=== PATIENT | male | born 1990 ===

== ENCOUNTER 2017-09-05 23:27 | Emergency (ER) | payer OTHER ==
[2017-09-06] MEDS ORDERED: Tetan/Diph/Pertus SYR(Tdap)* 0.5 ML SYR(BOOSTRIX) use SYR IM ONE (02:35)
[2017-09-06] MEDS ORDERED: Lidocaine 2% 10 ML* VIAL INJ ONE (03:09)
[2017-09-06] MEDS ORDERED: Lidocaine 2% PF * 5 ML VIAL ONE (03:15)
[2017-09-06] MEDS ORDERED: Cephalexin CAP* 500 MG PO ONE (05:00)
--- NOTE | 2017-09-06 05:08 | ED ---
Laceration/Wound HPI - HPI Summary HPI Summary: [facility] from [facility] with laceration to left side of jaw and neck, and right side cheek by unknown sharp object. Tetanus status unknown. Medical history is none. No anti-coag. Bleeding controlled - History of Current Complaint Stated Complaint: FACIAL LACS Time Seen by Provider: 09/06/17 01:48 Hx Obtained From: Patient Mechanism of Injury: Sharp/Blunt Trauma Pain Intensity: 0 - Allergy/Home Medications Allergies/Adverse Reactions: Allergies Allergy/AdvReac Type Severity Reaction Status Date / Time No Known Allergies Allergy Verified 09/05/17 23:35 PMH/Surg Hx/FS Hx/Imm Hx Infectious Disease History: No Infectious Disease History: Denies: Traveled Outside the [place] in Last 30 Days - Social History Alcohol Use: None Substance Use Type: Reports: None Smoking Status (MU): Never Smoked Tobacco Review of Systems Constitutional: Negative Eyes: Negative ENT: Negative Cardiovascular: Negative Respiratory: Negative Gastrointestinal: Negative Genitourinary: Negative Musculoskeletal: Negative Skin: Negative Neurological: Negative Psychological: Normal All Other Systems Reviewed And Are Negative: Yes Physical Exam - Summary Physical Exam Summary: Superficial laceration to left side jaw and neck. Facial laceration to right side cheek. Full range of motion of jaw. No intraoral trauma. Triage Information Reviewed: Yes Vital Signs On Initial Exam: Initial Vitals Temp Pulse Resp BP Pulse Ox 98.0 F 72 16 144/87 99 09/05/17 23:34 09/05/17 23:34 09/05/17 23:34 09/05/17 23:34 09/05/17 23:34 Vital Signs Reviewed: Yes Appearance: Positive: Well-Appearing Skin: Positive: Warm Head/Face: Positive: Normal Head/Face Inspection Eyes: Positive: Normal ENT: Positive: Normal ENT inspection Neck: Positive: Supple Respiratory/Lung Sounds: Positive: Clear to Auscultation Cardiovascular: Positive: Normal Abdomen Description: Positive: Nontender Musculoskeletal: Positive: Normal Neurological: Positive: Normal Psychiatric: Positive: Normal AVPU Assessment: Alert - [place] Coma Scale Best Eye Response: 4 - Spontaneous Best Motor Response: 6 - Obeys Commands Best Verbal Response: 5 - Oriented Coma Scale Total: 15 Procedures - Laceration/Wound Repair 1 Location: face Description: Linear Anesthesia: Local, 1.0% Length, Depth and Shape: 20cm x .5cm Betadine Prep?: Yes Irrigated w/ Saline (ccs): 40 - saline with Betadine Laceration/Wound Explored: clean Closure: Single Layer Debridement: minimal Suture Type: Prolene Number of Sutures: 31 - 6.o ethilon Layer Closure?: No Sterile Dressing Applied?: No 2 Location: face Description: Linear Anesthesia: Local, 2.0% Length, Depth and Shape: 9cm x .5cm Betadine Prep?: Yes Irrigated w/ Saline (ccs): 40 - saline with Betadine Laceration/Wound Explored: clean Closure: Single Layer Debridement: minimal Number of Sutures: 8 - 6. 0 Ethilon Layer Closure?: No Sterile Dressing Applied?: No Diagnostics - Vital Signs Vital Signs Temp Pulse Resp BP Pulse Ox 09/05/17 23:34 98.0 F 72 16 144/87 99 - Laboratory Lab Statement: Any lab studies that have been ordered have been reviewed, and results considered in the medical decision making process. Laceration Repair Course/Dx - Course Course Of Treatment: Lacerations. Tetanus updated. Started on Keflex 500 mg by mouth. Will be given prescription for Keflex 500mg po tid x 5 days. Sutures out in 5-7 days - Clinical Impression Provider Diagnoses: Face lacerations Discharge - Sign-Out/Discharge Documenting (check all that apply): Discharge/Admit/Transfer - Discharge Plan Condition: Stable Disposition: LAW ENFORCEMENT/COURT Prescriptions: Cephalexin CAP* [Keflex CAP*] 500 mg PO TID 5 Days #15 cap Patient Education Materials: Care For Your Stitches (DC), Facial Laceration (ED ) Referrals: [facility], [Primary Care Provider] - Additional Instructions: Sutures out in 5-7 days. Wash wounds with warm running water and soap. Do not submerge underwater for long periods of time. Take antibiotics as directed. Return to the ED for any new or worsening symptoms - Billing Disposition and Condition Condition: STABLE Disposition: LAW
[2017-09-06 05:16] VITALS: BP 141/76
== END 2017-09-06 05:27 ==
LOC: ED 23:27
DX: S11.91XA Laceration without foreign body of unspecified part of neck, initial encounter (principal); S01.81XA Laceration without foreign body of other part of head, initial encounter; W26.9XXA Contact with unspecified sharp object(s), initial encounter; Y92.9 Unspecified place or not applicable
CPT/HCPCS: 12015; 12016; 90471; 90715; 99283; A9270-GY